=== PATIENT | male | born 1990 ===

== ENCOUNTER → 2022-06-29 | Emergency (ER) | payer BC ==
[~2022-06-29] VITALS: Ht 185.4 cm; Wt 87.7 kg
[~2022-06-29] MED LIST: SUMATRIPTAN SUCCINATE 6 MG/0.5 ML VIAL SQ ONE
[2022-06-29 19:43] LABS: HEMATOCRIT 43.4 % (36.7-47.1); MEAN CORPUSCULAR HEMOGLOBIN 28.4 uug (23.8-33.4); MEAN CORPUSCULAR VOLUME 84.2 fL (73.0-96.2); PLATELET COUNT (AUTO) 228 K/uL (152-348)
[2022-06-29 19:47] LABS: POTASSIUM 3.6 mmol/L (3.5-5.1)
--- NOTE | 2022-06-29 21:17 | NUR ---
Patient presented to the ER with complaints of unusually persistent headache. Patient AAOx4, seen by the MD, CT Head ordered and completed. Oxygen applied and patient medicated as per MD orders (see eMAR). Patient decided to leave hospital AMA.
--- NOTE | 2022-06-29 22:05 | NUR ---
IV removed. Catheter intact and site benign. Pressure and 4x4 gauze applied to site. No bleeding noted.
--- NOTE | 2022-06-29 22:15 | NUR ---
Patient does not wish to proceed with medical care recommended by (Katherine ). Patient given information related to possible complications, up to and including , which could occur as a result of leaving the hospital at this time. Patient verbalizes understanding of risks involved due to leaving against medical advice. Patient refuse signed AMA form.
[2022-06-29 22:16] VITALS: BP 133/72
== END | disposition left against medical advice (07) ==
LOC: ER 18:33
DX: R51.9 Headache, unspecified (principal); Z83.3 Family history of diabetes mellitus; Z82.49 Family history of ischemic heart disease and other diseases of the circulatory system
CPT/HCPCS: 99284; 70450; 80048; 85025; 36415; 96372; J3030